=== PATIENT | female | born 1990 | race Caucasian/White ===

== ENCOUNTER 2023-02-14 21:51 | Outpatient (REF) | payer OTHER, SELFPAY ==
[2023-02-19 10:11] LABS: Age Gdln ACOG Testing Note (.); HPV Aptima Negative (Negative); IGP, Aptima HPV, rfx 16/18,45 Note (.)
== END 2023-02-14 21:52 | disposition home or self-care (01) ==
LOC: LAB 21:51
PROVIDERS: Visit Provider Obstetrics & Gynecology
DX: Z12.4 Encounter for screening for malignant neoplasm of cervix (principal)
CPT/HCPCS: 87624; G0145